=== PATIENT | female | born 1985 | race Asian ===

== ENCOUNTER 2019-04-06 18:57 | Emergency (ER) | payer BC, OTHER ==
[~2019-04-06] VITALS: Ht 167.6 cm; Wt 78.8 kg
[~2019-04-06 18:57] MED LIST: ACET325T33 PO
[2019-04-06 19:09] VITALS: Ht 167.6 cm; Wt 78.8 kg
[2019-04-06] MEDS ORDERED: ONDANSETRON (ODT) 4 MG TAB ODT STA (20:03)
[2019-04-06] MEDS ORDERED: ACETAMINOPHEN 325 MG TAB PO ONE (20:30)
[2019-04-06 20:32] VITALS: BP 102/57; PULSE 71; RESP 17
== END 2019-04-06 20:32 | disposition home or self-care (01) ==
LOC: FTE 18:57
DX: O26.891 Other specified pregnancy related conditions, first trimester (principal); R40.2142 Coma scale, eyes open, spontaneous, at arrival to emergency department; R40.2362 Coma scale, best motor response, obeys commands, at arrival to emergency department; R40.2252 Coma scale, best verbal response, oriented, at arrival to emergency department; R51 Headache; J45.909 Unspecified asthma, uncomplicated; O99.511 Diseases of the respiratory system complicating pregnancy, first trimester; Z3A.12 12 weeks gestation of pregnancy
CPT/HCPCS: Z7502; Z7610; 99283